=== PATIENT | male | born 1990 | race Caucasian/White ===

== ENCOUNTER 2018-09-12 12:15 | Day surgery (SDC) | payer BC ==
[2018-09-12] MEDS ORDERED: MIDAZOLAM 1 MG/ML 2 ML INJ (15:11)
[2018-09-12] MEDS ORDERED: FENTAnyl 50 MCG/ML VIAL (15:11)
[2018-09-12] MEDS ORDERED: PROPOFOL 20 ML (15:11)
[2018-09-12] MEDS ORDERED: ETOMIDATE 20 MG INJ (15:17)
== END 2018-09-12 16:03 | disposition home or self-care (01) ==
LOC: GIL 12:15
DX: K29.50 Unspecified chronic gastritis without bleeding (principal); K44.9 Diaphragmatic hernia without obstruction or gangrene
CPT/HCPCS: 43239; 88305; 88312